=== PATIENT | male | born 1965 | race Caucasian/White ===

== ENCOUNTER 2018-02-22 15:44 | Emergency (ER) | payer OTHER ==
[~2018-02-22] VITALS: Ht 188 cm; Wt 133.8 kg
[~2018-02-22 15:44] MED LIST: ALLOPURINOL100 MG PO; LORAZEPAM1 MG PO; METOPROLOL SUCC50 MG PO; PERCOCET 5-3251 EACH PO; PYRIDIUM200 MG PO; TRAZODONE HCL100 MG PO; ZOFRAN ODT4 MG PO
[2018-02-22] MEDS ORDERED: CHOLESTYRAMINE P4 GM PO (16:03)
[2018-02-22] MEDS ORDERED: ELIQUIS5 MG PO (16:04)
[2018-02-22] MEDS ORDERED: PREDNISONE5 MG PO (16:04)
[2018-02-22] MEDS ORDERED: ATORVASTATIN CA10 MG PO (16:05)
[2018-02-22] MEDS ORDERED: MAG-OXIDE400 MG PO (16:05)
[2018-02-22] MEDS ORDERED: HYDROMORPHONE HC4 MG PO (16:06)
[2018-02-22] MEDS ORDERED: ONDANSETRON ODT8 MG PO (16:07)
[2018-02-22] MEDS ORDERED: GAS RELIEF125 M1 PO (16:07)
[2018-02-22] MEDS ORDERED: OLANZAPINE10 MG PO (16:08)
[2018-02-22] MEDS ORDERED: NORCO 5-325 TA1 EACH PO (16:18)
[2018-02-22] MEDS ORDERED: REGLAN10 MG PO (18:22)
[2018-02-22] MEDS ORDERED: PROMETHAZINE HC25 M1 PO (18:22)
== END 2018-02-22 19:04 | disposition home or self-care (01) ==
LOC: ED 15:44
DX: R11.2 Nausea with vomiting, unspecified (principal); R53.1 Weakness; C61 Malignant neoplasm of prostate; C78.7 Secondary malignant neoplasm of liver and intrahepatic bile duct; Z79.899 Other long term (current) drug therapy
CPT/HCPCS: 71046; 76705; 80053; 82140; 83605; 85025; 85610; 85730; 96360; 99284; J7030; J7040

== ENCOUNTER 2018-02-23 10:05 | Observation (INO) | payer OTHER ==
[~2018-02-23] VITALS: Ht 188 cm; Wt 136.5 kg
[~2018-02-23 10:05] MED LIST changes: +ATORVASTATIN CA10 MG PO; +CHOLESTYRAMINE P4 GM PO; +ELIQUIS5 MG PO; +GAS RELIEF125 M1 PO; +HYDROMORPHONE HC4 MG PO; +MAG-OXIDE400 MG PO; +NORCO 5-325 TA1 EACH PO; +OLANZAPINE10 MG PO; +ONDANSETRON ODT8 MG PO; +PREDNISONE5 MG PO; +PROMETHAZINE HC25 M1 PO; +REGLAN10 MG PO
--- NOTE | 2018-02-23 15:01 | NUR ---
pt arrived from ed. PT HERE FOR COMFORT CARE. ADMISSION ASSESSMENT DONE. VITALS TAKEN. MD NOTIFED OF BP, NO ACTION NEEDED AT THIS TIME. PT APPEARS COMFORTALBE. 0/10 ON FACES SCALE. FAMILY AT BEDSIDE. FAMILY STATES THEY HAVE NO REQUESTS OR COMPLAINTS AND FEEL THAT THE PT IS COMFORTABLE AT THIS TIME. BED RAILS UP. CALL LIGHT WITHIN REACH. FAMILY DEMONSTRATES USE OF CALL LIGHT. COMFORT CARE TRY ORDRED FOR FAMILY.
--- NOTE | 2018-02-23 17:45 | NUR ---
THIS RN TO ROOM TO CHECK ON PT AND FAMILY. PT RESTING WITH EYES CLOSED. RR = 24 BPM. FAMILY STATES PT "STOPS BREATHING AT TIMES." THERAPEUTIC COMMUNICATION DONE WITH FAMILY REGARDING END OF LIFE EXPECTATIONS AND CARE. FAMILY STATES THE PT APPEARS COMFORTABLE. PT NOT OPENING EYES TO VOICE AT THIS TIME. PT IS NOT RESTLESS IN BED. BED RAILS UP. FAMILY HOLDING PTS HANDS. COMFORT TRAY FOR FAMILY IN ROOM. FAMILY DEMONSTRATES USE OF CALL LIGHT AND ARE ADVISED TO CALL FOR ANY NEED OR CONCERN. FAMILY STATES THEY AHVE NO NEEDS OR CONCERNS AT THIS TIME AND THAT THEY DON'T FEEL THE PT NEEDS ANYTHING EITHER.
--- NOTE | 2018-02-23 18:03 | NUR ---
PT ARRIVED THROUGH ED TODAY FOR COMFORT CARE. HOPICE CONSULT TODAY IN ED. PT AND FAMILY COMPLETED POLST FORM AND AGREED TO COMFORT CARE. PRN PAIN, NAUSEA, AND COMFORT MEDICATIONS. BP LOW, MD AWARE, COMFORT MESAURES ONLY. PT MINIMALLY RESPONSIVE. PERIODS OF APNEA NOTED BY FAMILY. PORT-A-CATH ACCESSED FOR USE IF NEEDED. FAMILY AT BEDSIDE.
--- NOTE | 2018-02-23 18:42 | NUR ---
PTS FAMILY CAME TO NURSES STATION WITH REQUESTS FOR RN TO TAKE BP AND CHECK PTS DEPENDS. THIS RN TO ROOM. DEPENDS CHECKED, DRY. BEFORE BP CHECK PTS FAMILY ASKED WHAT THEY WOULD LIKE DONE IF THE BP RESULTS ARE OUT OF NORMAL LIMITS. FAMILY STATE THEY DO NOT WANT ANYTHING DONE THEY ARE "JUST CURIOUS." BP TAKEN. FOUND TO BE 53/33 (MAP = 38). FAMILY CONFIRMES THAT THEY DO NOT WANT MD CJ OR ANY ACTION TAKEN. PT IS NOT RESTLESS OR AGITATED. FAMILY STATE THAT HE APPEARS COMFORTABLE AND THEY HAVE NO ADDITIONAL REQUESTS OR COMPLAINTS AT THIS TIME. BED RAILS UP.
--- NOTE | 2018-02-23 19:15 | NUR ---
RECEIVED REPORT FROM KADIE HOWARD. PT NONRESPONSIVE, WITH FAMILY AND FRIENDS AROUND HIS BED. RESPIRATIONS SHALLOW, FAMILY DENIES DISCOMFORT NOTED IN PT.
--- NOTE | 2018-02-23 21:00 | NUR ---
PT RESPIRATIONS LESS PER FAMILY, CONTINUES NON RESPONSIVE. MULT FRIENDS STOPPING BY TO BE WITH FAMILY.
--- NOTE | 2018-02-23 22:35 | NUR ---
CALLED TO ROOM BY UNIVERSITY PRESIDENT AT 2144, PT WITH OCCASSIONAL EXTREMELY SHALLOW BREATH "GUPPY BREATHING", STAYED WITH FAMILY, BY 2149 PT HAD NO HEART BEAT, NO RESPIRATIONS, NO BP. FAMILY AWARE, MANDIE Perez, PASTORAL CARE, WITH FAMILY. CALLED DR LEE AT 2152, HE ASSESSED PT BY 2154; CALLED [facility] [phone]; THEY PLAN TO SEND [facility] TO PICK PT UP TONIGHT. FIRE ENGINE PUMP OPERATOR AWARE AND STATED THAT PT HAD LEFT.
--- NOTE | 2018-02-23 23:35 | NUR ---
CALLED IN FOR THIS PT ON COMFORT CARE. FAMILY ASKED ABOUT [facility]. WILSON SO I CALLED BUT GOT NO ANSWER. I PRAYED WITH FAMILY IN ROOM WITH PT, THEN WITH FRIENDS IN HALLWAY. WHEN PT PASSED AND FAMILY LEFT I ESCORTED BODY, COVERED WITH PASSAGE QUILT, TO HOME [facility].
== END 2018-02-23 23:00 ==
LOC: ED 10:05 → MS 10:06
PROVIDERS: ADMIT Internal Medicine
DX: G89.3 Neoplasm related pain (acute) (chronic) (principal); C61 Malignant neoplasm of prostate; C78.7 Secondary malignant neoplasm of liver and intrahepatic bile duct; C79.51 Secondary malignant neoplasm of bone; I10 Essential (primary) hypertension; M10.9 Gout, unspecified; G47.30 Sleep apnea, unspecified; R17 Unspecified jaundice; G89.4 Chronic pain syndrome; Z51.5 Encounter for palliative care; Z79.02 Long term (current) use of antithrombotics/antiplatelets; Z79.891 Long term (current) use of opiate analgesic; Z79.899 Other long term (current) drug therapy
CPT/HCPCS: 96361; 96374; 96375; 99285; G0378; J1100; J2405; J2550; J3010; J7030